=== PATIENT | male | born 1995 | race Caucasian/White ===

== ENCOUNTER 2025-10-26 08:07 | Outpatient (OUT) | payer OTHER, SELFPAY ==
--- NOTE | 2025-10-26 08:21 | XR_ITS ---
[facility] [place] [id number] Patient Name: RYANN PALMA MRN: [id number] date: 1995 Sex: M Assigned Patient Location: [facility] Current Patient Location: [facility] Accession/Order Number: [id number] Exam Date: 10/26/2025 08:30 Report Date: 10/26/2025 09:17 At the request of: FELICIA GRANDE DO Procedure: XR hip LT 1V w/ pelvis LEFT HIP WITH AP PELVIS - 3 views COMPARISON: None available CLINICAL DATA: Chronic left hip pain and limited range of motion. No reported injury. AP view of the pelvis as well as AP and frog-lateral views of the left hip were obtained. No fracture or dislocation is identified. The hip joint spaces are maintained and there is no significant hypertrophy. The SI joints are intact. No soft tissue abnormalities are present. XR/XR hip LT 1V w/ pelvis IMPRESSION: NO ACUTE BONY FINDINGS. Impression dictated by: Jaquelin Gonzalez M.D. 10/26/2025 9:17 AM Dictation Location: [place] [address] Electronically authenticated by: [id number] Y Date: 10/26/2025 09:17
== END 2025-10-26 08:08 | disposition home or self-care (01) ==
LOC: RAD 08:14
PROVIDERS: PCP Family Medicine; Visit Provider Chiropractor
DX: M13.852 Other specified arthritis, left hip (principal)
CPT/HCPCS: 73501